=== PATIENT | female | born 1965 | race Caucasian/White ===

== ENCOUNTER 2019-04-14 14:46 | Emergency (ER) | payer OTHER ==
--- NOTE | 2019-04-14 15:16 | UC ---
Back Pain HPI - HPI Summary HPI Summary: 53 yo female presents with left flank and left abdominal pain. She tells me that for the last month or so she has noticed left side pain once or twice throughout the day that is worse after she eats. She will have sudden cramping and then have a BM that is "watery" and her cramping resolves. Today she has had constant left flank pain that is radiating to her left side that is sharp and hurts to touch. She has not had any BM today. She last had a colonoscopy 1 year ago and was normal per pt. Denies fever, chills, n/v, sob, injury to the area, dysuria. - History of Current Complaint Stated Complaint: LEFT SIDE LOWER BACK PAIN Time Seen by Provider: 04/14/19 15:16 Hx Obtained From: Patient Onset/Duration: Gradual Onset Severity Initially: Moderate Severity Currently: Severe Pain Intensity: 8 Pain Scale Used: 0-10 Numeric - Allergies/Home Medications Allergies/Adverse Reactions: Allergies Allergy/AdvReac Type Severity Reaction Status Date / Time aspirin Allergy Anaphylatic Verified 04/14/19 15:18 Shock Home Medications: Home Medications NK [No Home Medications Reported] 04/14/19 [History Confirmed 04/14/19] PMH/Surg Hx/FS Hx/Imm Hx - Additional Past Medical History Additional PMH: None - Surgical History Surgical History: Yes Surgery Procedure, Year, and Place: ORIF right knee - Family History Known Family History: Positive: Non-Contributory - Social History Occupation: Employed Full-time Lives: With Family Alcohol Use: Occasionally Substance Use Type: None Smoking Status (MU): Current Every Day Smoker Type: Cigarettes Review of Systems All Other Systems Reviewed And Are Negative: No Constitutional: Positive: Negative Skin: Positive: Negative Respiratory: Positive: Negative Cardiovascular: Positive: Negative Gastrointestinal: Positive: Abdominal Pain, Diarrhea Genitourinary: Positive: Negative Neurovascular: Positive: Negative Neurological: Positive: Negative Psychological: Positive: Negative Physical Exam - Summary Physical Exam Summary: GENERAL: NAD. WDWN. No pain distress. SKIN: No rashes, sores, lesions, or open wounds. NECK: Supple. Nontender. No lymphadenopathy. CHEST: CTAB. No r/r/w. No accessory muscle use. Breathing comfortably and in no distress. CV: RRR. Pulses intact. Cap refill <2seconds ABDOMEN: LEFT FLANK: Moderate TTP. Left side and LUQ with mild TTP. Soft. No distention or guarding. Bowel sounds present NEURO: Alert. PSYCH: Age appropriate behavior. Triage Information Reviewed: Yes Vital Signs: Vital Signs: Temp Pulse Resp BP Pulse Ox 97.3 F 64 18 117/67 99 04/14/19 15:11 04/14/19 15:11 04/14/19 15:11 04/14/19 15:11 04/14/19 15:11 Laboratory Tests 04/14/19 15:29 POC Urine Color Yellow POC Urine Clarity Clear POC Urine pH 5.5 POC Ur Specif [place] >= 1.030 POC Urine Protein 2+ A POC Ur Glucose (UA) Negative POC Urine Ketones Negative POC Urine Blood Trace-lysed A POC Urine Nitrite Negative POC Urine Bilirubin Negative POC Urine Urobilinogen 0.2 POC U Leukocyte Esteras Negative Vital Signs Reviewed: Yes Back Pain Course/Dx - Course Course Of Treatment: UA negative. Given pt's worsening pain that is now constant - I recommended that she undergo further evaluation in the ED. - Differential Dx/Diagnosis Provider Diagnosis: Left flank pain Discharge ED - Sign-Out/Discharge Documenting (check all that apply): Patient Departure All imaging exams completed and their final reports reviewed: No Studies - Discharge Plan Condition: Stable Disposition: HOME-RECOMMEND TO ED Referrals: Vianey Holm MD [Primary Care Provider] - Additional Instructions: I recommend that you go to the ER for further evaluation of your left side pain. Your urine test was normal in the clinic today. - Billing Disposition and Condition Condition: STABLE Disposition: Home-Recommend to ED
[2019-04-14 15:18] VITALS: BP 117/67
== END 2019-04-14 15:35 | disposition home health service (06) ==
LOC: UCCORT 14:46
DX: R10.9 Unspecified abdominal pain (principal); M54.5 Low back pain; R19.7 Diarrhea, unspecified; F17.210 Nicotine dependence, cigarettes, uncomplicated; Z88.8 Allergy status to other drugs, medicaments and biological substances
CPT/HCPCS: 81003; 99212; G0463